=== PATIENT | male | born 1965 | race Caucasian/White ===

== ENCOUNTER → 2017-10-01 | Outpatient (CLI) | payer OTHER ==
[~2017-10-01] MED LIST: ASPI81TA28 PO; ATOR10TA82 PO; GEMF600T3 PO; GLYB5TAB8 PO; LISI-786 PO; METF1000 PO; OMEP20CA9 PO; SITA1TAB27 PO
[2017-10-02 07:54] LABS: ESTIMATED AVERAGE GLUCOSE 263 mg/dl; HA1C FLAG Normal (Normal)
== END | disposition home or self-care (01) ==
LOC: C.LAB1850 13:38
PROVIDERS: ATTEND Nurse Practitioner Adult Health
DX: E11.65 Type 2 diabetes mellitus with hyperglycemia (principal)